=== PATIENT | female | born 1995 | race Caucasian/White ===

== ENCOUNTER 2017-01-09 06:19 | Emergency (ER) | payer OTHER ==
[2017-01-09] MEDS ORDERED: DIPHENHYDRAMINE HCL 50 MG/ML VIAL IV ONE (07:03)
[2017-01-09 08:24] LABS: APPEARANCE,URINE CLEAR; BILIRUBIN,URINE NEGATIVE (NEGATIVE); GLUCOSE, URINE NEGATIVE (NEGATIVE); KETONES,URINE NEGATIVE (NEGATIVE); LEUKOCYTE ESTERASE,URINE NEGATIVE (NEGATIVE); NITRITE,URINE NEGATIVE (NEGATIVE); PROTEIN,URINE NEGATIVE (NEGATIVE); UROBILINOGEN,URINE NEGATIVE mg/dL (<2.0)
[2017-01-09] MEDS ORDERED: NORMAL SALINE 1000 ML 1,000 ML IV ONE (08:48)
[2017-01-09 09:52] LABS: ABSOLUTE BASOPHILS # (AUTO) 0.1 10^3/uL (0.0-0.2); ABSOLUTE EOSINOPHILS # (AUTO) 0.1 10^3/uL (0.0-0.6); ABSOLUTE LYMPHOCYTES (AUTO) 2.3 10^3/uL (0.5-4.7); ABSOLUTE MONOCYTES (AUTO) 0.5 10^3/uL (0.1-1.4); ABSOLUTE NEUT (AUTO) 4.6 10^3/uL (1.7-8.2); EOSINOPHILS % (AUTO) 1.1 % (0-6); HEMATOCRIT 38.6 % (36.0-47.0); HEMOGLOBIN 13.2 g/dL (12.0-15.5); LYMPHOCYTES % (AUTO) 30.8 % (13-45); MEAN CORPUSCULAR HEMOGLOBIN 29.6 pg (27.0-33.4); MEAN CORPUSCULAR HGB CONC 34.3 g/dL (32.0-36.0); MEAN CORPUSCULAR VOLUME 86 fl (80-97); MONOCYTES % (AUTO) 6.8 % (3-13); RED BLOOD COUNT 4.47 10^6/uL (3.72-5.28); RED CELL DISTRIBUTION WIDTH 13.1 % (11.5-14.0); SEGMENTED NEUTROPHILS % (AUTO) 60.3 % (42-78); WHITE BLOOD COUNT 7.6 10^3/uL (4.0-10.5)
[2017-01-09 10:10] LABS: ANION GAP 12 (5-19); BLOOD UREA NITROGEN 19 mg/dL (7-20); CALCIUM 9.3 mg/dL (8.4-10.2); CARBON DIOXIDE 22 mmol/L (22-30); CHLORIDE 106 mmol/L (98-107); CREATINE KINASE 55 U/L (30-135); GLUCOSE 85 mg/dL (75-110); POTASSIUM 4.3 mmol/L (3.6-5.0); SODIUM 140.1 mmol/L (137-145)
[2017-01-09 10:53] LABS: PARTIAL THROMBOPLASTIN TIME 27.9 SEC (23.5-35.8); PROTHROMBIN TIME 13.3 SEC (11.4-15.4)
[2017-01-09 10:54] LABS: FIBRINOGEN 247 mg/dL (209-497)
[2017-01-09 11:05] LABS: D-DIMER < 0.27 ug/mL (0.00-0.50)
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
[2017-01-09 12:35] VITALS: BP 126/70
== END 2017-01-09 12:38 | disposition home or self-care (01) ==
LOC: ER 06:19
DX: T63.001A Toxic effect of unspecified snake venom, accidental (unintentional), initial encounter (principal); W59.11XA Bitten by nonvenomous snake, initial encounter
CPT/HCPCS: 99284; 96361; 96374; 36415; 82550; 84703; 85025; 85384; 85362; 85610; 85730; 83874; 80048; 81001; 85379; J1200; J7030

== ENCOUNTER 2019-11-27 17:33 | Emergency (ER) | payer OTHER ==
[2019-11-27 17:39] VITALS: BP 129/78
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
== END 2019-11-27 18:27 | disposition home or self-care (01) ==
LOC: ER 17:33
DX: S13.4XXA Sprain of ligaments of cervical spine, initial encounter (principal); V49.40XA Driver injured in collision with unspecified motor vehicles in traffic accident, initial encounter
CPT/HCPCS: 99283